=== PATIENT | female | born 1990 | race Caucasian/White ===

== ENCOUNTER 2016-03-03 19:55 | Emergency (ER) | payer OTHER ==
[~2016-03-03] VITALS: Ht 160 cm; Wt 56.4 kg
[2016-03-03 20:04] VITALS: BP 150/93; PULSE 100; RESP 16; O2SAT 98
--- NOTE | 2016-03-03 22:29 | ED.REPORT ---
HPI- Female Date of Service Mar 03, 2016 ED Provider: Doc,Ed MD Pt is a 25 y.o. female who presents to the ED c/o a foreign body in her vagina. Pt states she was having sex today and the condom came off and became stuck in her vagina. She reports associated discomfort but denies any pain. Pt reports that she is currently taking oral contraceptives and the use of the condom was due to her being on her menses. Nursing Notes Stated Complaint: VAGINAL DISCOMFORT Chief Complaint: Female Abdominal Pain Nursing Notes Reviewed: Yes Allergies: Coded Allergies: No Known Allergies (Unverified , 03/03/16) General Time Seen by MD: 22:28 Chief Complaint Other (Vaginal foreign body) Hx Obtained From: Patient Arrived By: Walk-in Sudden in Onset?: Yes Onset Occurred: Just prior to arrival Context of Onset: During sexual activity Symptom Duration: Since onset Severity: Current: No pain currently Recent Healthcare: No recent doctor visit, No recent hospitalization Similar Sx Previous: No Past Medical History Past Medical History None reported Past Surgical History None reported Social History Alcohol Use: "Social" Ambulatory Status Independent Review of Systems Vaginal foreign body Vaginal discomfort Female: Denies: Pelvic pain Complete sys rev & neg: except as marked. Physical Exam Initial Vital Signs Vital Signs (First) Date Time Temp Pulse Resp B/P Pulse Ox O2 Delivery O2 Flow Rate FiO2 03/03/16 20:04 36.8 100 16 150/93 98 03/03/16 23:01 Room Air Initial VS: Reviewed, Vital signs abnormal Head / Eyes: Atraumatic, Normocephalic Respiratory: Breath sounds normal, No respiratory distress Cardiovascular: Regular rate & rhythm, Intact distal pulses Abdomen / GI: Soft, Non-tender Extremities: Vascular intact, Neuro intact Skin: Warm, Dry, No cyanosis Neurologic: Alert, Oriented, Nonfocal Psychiatric: Mood/affect normal, Behavior normal, Normal thought content Female Genitourinary: Coat Finisher present, Atraumatic Pelvic Exam: Positive: Foreign body present (Removed) General/Constitutional: Awake, Alert, No acute distress, Well appearing, Well developed, Well hydrated, Well nourished, Not toxic appearing Re-Eval/Medical Decision Med Decision/Clinical Course Lost condom retrieved without difficulty. Condom was being used because she was on her menses, not for control. "Morning after pill" is not necessary. Source of Hx: Old records Re-Evaluation/Progress : Time of Eval: 22:50 Re-Evaluation/Progress Note: Pt rechecked. Pelvic exam performed with fish checker present. Foreign body removed. Discussed plan for discharge, pt understands and agrees with plan. Counseled Regarding: Diagnosis, Lab results, When/why to return to ED Discharge & Departure Impression: Primary Impression: Vaginal foreign object Encounter type: initial encounter Qualified Code: T19.2XXA - Foreign body in vulva and vagina, initial encounter Disposition: Home Discharge Condition All VS Reviewed: Yes Condition: Improved Patient Instructions: Vaginal Foreign Body (ED) Additional Instructions: The condom was easily removed without complication. No further evaluation or treatment needed. Referrals: [facility] (PCP) [facility] Pro Attestation Portions of this note were transcribed by Unique Lang. I, Dr. Gonzalez personally performed the history, physical exam and medical decision-making; I reviewed and confirmed the accuracy of the information in the transcribed note. Signed by: Pro Hankins, 03/03/16 and 0821. copies to: [facility] Juan Gonzalez MD Mar 03, 2016 22:29 UNIQUE LANG Mar 03, 2016 22:48
[2016-03-03 23:01] VITALS: BP 119/69; PULSE 78; RESP 19; O2SAT 99
== END 2016-03-03 23:02 | disposition home or self-care (01) ==
LOC: SED 19:55
DX: T19.2XXA Foreign body in vulva and vagina, initial encounter (principal); X58.XXXA Exposure to other specified factors, initial encounter; Y93.89 Activity, other specified; Y92.9 Unspecified place or not applicable; Y99.8 Other external cause status